=== PATIENT | male | born 1955 | race Caucasian/White ===

== ENCOUNTER 2019-01-02 06:12 | Day surgery (SDC) | payer OTHER ==
[~2019-01-02] VITALS: Ht 185.4 cm; Wt 81.2 kg
[2019-01-02] MEDS ORDERED: MIC5 PO (07:16)
[2019-01-02] MEDS ORDERED: SIMV40TA1 PO (07:16)
[2019-01-02] MEDS ORDERED: METF1000 PO (07:16)
[2019-01-02] MEDS ORDERED: fentaNYL 0.05 MG/ML VIAL ONE (07:42)
[2019-01-02] MEDS ORDERED: LIDOCAINE 2% 100 MG/5 ML UJET TP ONE (07:42)
[2019-01-02] MEDS ORDERED: fentaNYL 0.05 MG/ML VIAL IVP ONE (09:00)
== END 2019-01-02 08:40 | disposition home or self-care (01) ==
LOC: MDS 06:12 → MMU 06:24 → MDS 08:40
PROVIDERS: ATTEND Internal Medicine Gastroenterology
DX: Z12.11 Encounter for screening for malignant neoplasm of colon (principal); D12.3 Benign neoplasm of transverse colon; I10 Essential (primary) hypertension; E11.9 Type 2 diabetes mellitus without complications; E78.00 Pure hypercholesterolemia, unspecified; Z79.899 Other long term (current) drug therapy; Z98.890 Other specified postprocedural states; Z89.421 Acquired absence of other right toe(s); Z79.84 Long term (current) use of oral hypoglycemic drugs
CPT/HCPCS: 45385; J3010